=== PATIENT | male | born 1950 | race American Indian/Alaskan Native ===

== ENCOUNTER 2022-04-10 09:28 | Emergency (ER) | payer MEDICARE ==
[2022-04-10 09:44] VITALS: BP 168/90
== END 2022-04-10 22:07 | disposition left against medical advice (07) ==
LOC: ED 09:28
DX: R21 Rash and other nonspecific skin eruption (principal); Z53.21 Procedure and treatment not carried out due to patient leaving prior to being seen by health care provider